=== PATIENT | male | born 1960 | race American Indian/Alaskan Native ===

== ENCOUNTER 2018-04-27 01:35 | Emergency (ER) | payer SELFPAY ==
--- NOTE | 2018-04-27 03:23 | Emergency Department Report ---
ED Rash HPI - HPI Chief Complaint: Skin Rash Stated Complaint: RASH Time Seen by Provider: 04/27/18 03:14 Duration: 6 months Rash Symptoms: No Facial Swelling, No Tongue/Oral Swelling, No Breathing Difficulties, No Choking Sensation, No Wheezing/Dyspnea, No Peeling, No Blistering, No Fever, No Lightheaded, No Malaise, No Myalgias Other History: 57-year-old -[place] male comes to the emergency room reports that 4 months ago, he said on a public toilet and penis textile water in the toilet. Patient reports since then he has been using several over-the- counter ointment such as hydrocortisone to the head of his penis. Patient now comes in with discoloration of the glans of the penis and distal shaft. He denies any drainage no pain no hematuria no fever. ED Review of Systems ROS: Stated complaint: RASH Other details as noted in HPI Comment: All other systems reviewed and negative Skin: change in color ED Past Medical Hx - Past Medical History Previous Medical History?: No - Surgical History Past Surgical History?: No - Social History Smoking Status: Never Smoker Substance Use Type: None Rash Exam - Exam General: Vital signs noted. No distress. Alert and acting appropriately. HEENT: No Periorbital Edema, No Conjuctival Injection, No Chemosis, No Perioral Edema, No Tongue Edema, No Uvular Edema, No Compromised Airway, No Drooling Skin: Yes Other (hypopigmented skin on the gland and shaft of penis. Penis is circumcised and no discharge no inguinal adenopathy) ED Medical Decision Making - Medical Decision Making Patient has been evaluated by this provider in fast track [facility]. Discussed with patient that he needs to discontinue using the hydrocortisone cream. Follow-up with dermatology. Critical care attestation.: If time is entered above; I have spent that time in minutes in the direct care of this critically ill patient, excluding procedure time. ED Disposition Clinical Impression: Discoloration of skin Disposition: -01 TO HOME OR SELFCARE Is pt being admited?: No Does the pt Need Aspirin: No Condition: Stable Additional Instructions: Please follow-up with dermatology I have listed several below for your convenience. Please discuss continuing use of hydrocortisone. Referrals: CHANTAL HOWARD MD [Staff Physician] - 3-5 Days TASNEEM HUMPHREYS MD [Staff Physician] - 3-5 Days Forms: Work/School Release Form(ED)
== END 2018-04-27 03:18 | disposition home or self-care (01) ==
LOC: ED 01:35
DX: N48.89 Other specified disorders of penis (principal)
CPT/HCPCS: 99282